=== PATIENT | female | born 1995 | race Caucasian/White ===

== ENCOUNTER 2017-05-06 04:31 | Emergency (ER) | payer OTHER, MEDICAID ==
[~2017-05-06] VITALS: Ht 170.1 cm; Wt 61.2 kg
[2017-05-06] MEDS ORDERED: AMOXICILLIN500 M2 PO (05:20)
[2017-05-06] MEDS ORDERED: ACETAMINOPHEN325 M2 PO (05:20)
== END 2017-05-06 05:47 | disposition home or self-care (01) ==
LOC: ED 04:31
DX: J32.9 Chronic sinusitis, unspecified (principal); J40 Bronchitis, not specified as acute or chronic

== ENCOUNTER 2020-03-15 07:09 | Emergency (ER) | payer BC, OTHER ==
[~2020-03-15] VITALS: Ht 170.1 cm; Wt 68.0 kg
[~2020-03-15 07:09] MED LIST: ACETAMINOPHEN325 M2 PO; AMOXICILLIN500 M2 PO
[2020-03-15 08:57] LABS: BASO % 0.5 % (0.0-1.0); EOS # 0.1 10*3/uL (0.0-0.4); EOS % 1.1 % (1.0-4.0); HEMATOCRIT 43.6 % (37.0-47.0); LYMPH # 1.2 10*3/uL (1.3-4.4); LYMPH % 19.4 % (27.0-41.0); MEAN CELL VOLUME 90.3 fl (81.0-99.0); MEAN CORPUSCULAR HGB 29.4 pg (27.0-31.0); MEAN CORPUSCULAR HGB CONC 32.6 g/dl (33.0-37.0); MONO # 0.6 10*3/uL (0.1-1.0); MONO % 9.3 % (3.0-9.0); NEUT # 4.3 10*3/uL (2.3-7.9); NEUT % 69.4 % (47.0-73.0); PLATELET COUNT AUTOMATED 220 10*3/uL (130-400); RED BLOOD COUNT 4.83 10*6/uL (4.10-5.10); RED CELL DISTRI WIDTH 12.9 % (0-14.5); WHITE BLOOD COUNT 6.2 10*3/uL (4.8-10.8)
[2020-03-15 09:13] LABS: ALBUMIN 4.1 gm/dl (3.1-4.5); ALKALINE PHOSPHATASE 65 U/L (45-117); BUN 8 mg/dl (7-24); CHLORIDE 107 mmol/L (98-107); CREATININE 0.71 mg/dL (0.55-1.02); POTASSIUM 3.7 mmol/L (3.5-5.1); SGOT/AST 6 IU/L (3-35); SGPT/ALT 16 U/L (12-78); SODIUM 138 mmol/L (136-145); TOTAL PROTEIN 7.5 gm/dL (6.4-8.2)
[2020-03-15 09:14] LABS: BILIRUBIN NEGATIVE; BLOOD TRACE-LYSED (NEGATIVE); CLARITY CLEAR (CLEAR); COLOR YELLOW (YELLOW); GLUCOSE NEGATIVE; KETONE TRACE; LEUKO ESTERASE TRACE (NEGATIVE); NITRITE NEGATIVE (NEGATIVE); PH 6.5 (4.5-8.0); UROBILINOGEN 0.2 E.U./dl (0.0-1.0)
[2020-03-15 09:27] LABS: BACTERIA TRACE; EPITHELIAL CELLS 0-2; RBC 0-2 rbc/hpf (0-2)
== END 2020-03-15 10:58 | disposition home or self-care (01) ==
LOC: ED 07:09
PROVIDERS: Emergency Medicine
DX: O46.91 Antepartum hemorrhage, unspecified, first trimester (principal); Z79.899 Other long term (current) drug therapy; Z3A.01 Less than 8 weeks gestation of pregnancy

== ENCOUNTER 2022-10-02 07:50 | Emergency (ER) | payer OTHER ==
[~2022-10-02] VITALS: Wt 74.8 kg
== END 2022-10-02 08:27 | disposition home or self-care (01) ==
LOC: ED 07:50
DX: S70.362A Insect bite (nonvenomous), left thigh, initial encounter (principal); W57.XXXA Bitten or stung by nonvenomous insect and other nonvenomous arthropods, initial encounter; Y93.89 Activity, other specified; Y92.89 Other specified places as the place of occurrence of the external cause; Y99.8 Other external cause status

== ENCOUNTER 2024-07-27 16:32 | Emergency (ER) | payer BC ==
[~2024-07-27] VITALS: Ht 170.1 cm; Wt 84.4 kg
[2024-07-27] MEDS ORDERED: BENADRYL ALLERG25 M5 PO (18:02)
[2024-07-27] MEDS ORDERED: PREDNISONE20 M1 PO (18:02)
[2024-07-27] MEDS ORDERED: ELIMITE 5%60 GM T (18:02)
[2024-07-27] MEDS ORDERED: methylPREDNISolone sod succ 125 MG VIAL IM ONE (18:50)
[2024-07-27] MEDS ORDERED: diphenhydrAMINE hydrochloride 25 MG CAP PO ONE (18:50)
== END 2024-07-27 20:00 | disposition home or self-care (01) ==
LOC: ED 16:32
DX: B86 Scabies (principal); L25.9 Unspecified contact dermatitis, unspecified cause; Z98.51 Tubal ligation status